=== PATIENT | male | born 1985 ===

== ENCOUNTER 2024-11-15 06:00 | Day surgery (SDC) | payer OTHER ==
[2024-11-07 13:43] VITALS: BP 127/90
[~2024-11-15] VITALS: Ht 167.6 cm; Wt 99.8 kg
[~2024-11-15 06:00] MED LIST: LOVAZA1 GM PO; ROSUVASTATIN CA20 MG PO; ZEPBOUND10 MG/0.5
[2024-11-15] MEDS ORDERED: TAMSULOSIN HCL 0.4 MG CAP PO ONE (08:15)
[2024-11-15] MEDS ORDERED: HEMOSTATIC MATRIX 1 KIT KIT TOP ONE (08:30)
[2024-11-15] MEDS ORDERED: BUPIVACAINE HCL 30 ML VIAL IJ ONE (08:30)
[2024-11-15] MEDS ORDERED: DIBUCAINE 30 GM TUBE RECTAL ONE (08:30)
[2024-11-15] MEDS ORDERED: METRONIDAZOLE/SODIUM CHLORIDE 500 MG/100 ML PIGGYBACK IV ONE (08:30)
[2024-11-15] MEDS ORDERED: LIDOCAINE HCL 1%/EPINEPHRINE 20ML VIAL IJ ONE (08:30)
[2024-11-15] MEDS ORDERED: CEFTRIAXONE SODIUM 2,000 MG VIAL IV ONE (08:30)
[2024-11-15] MEDS ORDERED: POVIDONE-IODINE 118 ML BOTT TOP ONE (08:30)
[2024-11-15] MEDS ORDERED: OXYCODONE HCL5 MG PO (08:38)
== END 2024-11-15 13:30 | disposition home or self-care (01) ==
LOC: CIR.AMB 06:00
PROVIDERS: ATTEND Surgery
DX: K62.82 Dysplasia of anus (principal); D12.8 Benign neoplasm of rectum; A63.0 Anogenital (venereal) warts; K62.89 Other specified diseases of anus and rectum; K62.0 Anal polyp